=== PATIENT | male | born 1965 | race Caucasian/White ===

== ENCOUNTER 2021-09-28 09:54 | Emergency (ER) | payer MEDICAID, OTHER ==
[~2021-09-28] VITALS: Ht 157.5 cm; Wt 73.9 kg
[2021-09-28 10:09] VITALS: BP 167/91
[2021-09-28 14:25] VITALS: BP 167/91
--- NOTE | 2021-09-28 14:28 | NUR ---
NO NURSING INTERVENTIONS, NO COMPLETE ASSESSMENT NEEDED.
--- NOTE | 2021-09-28 14:29 | NUR ---
Patient discharged with v/s stable. Written and verbal after care instructions given FOR WEAKNESS AND HYPERTENSION and explained. Patient verbalized understanding. Ambulatory with . All questions addressed prior to discharge. Advised to follow up with PMD.
== END 2021-09-28 14:25 | disposition home or self-care (01) ==
LOC: MED 09:54
DX: R53.1 Weakness (principal); I10 Essential (primary) hypertension; R51.9 Headache, unspecified
CPT/HCPCS: 93005; 99283